=== PATIENT | female | born 1945 | race Caucasian/White ===

== ENCOUNTER 2019-11-06 16:28 | Emergency (ER) | payer MEDICARE ==
[~2019-11-06] VITALS: Ht 175.3 cm; Wt 85.9 kg
[~2019-11-06 16:28] MED LIST: ACAR100T2; AMLO1CAP54; BACL10TA PO; GLIM4TAB4; METF-316
[2019-11-06 16:45] VITALS: BP 189/80
[2019-11-06] MEDS ORDERED: BACL20TA PO (17:22)
[2019-11-06] MEDS ORDERED: GLIM4TAB4 PO (17:22)
[2019-11-06] MEDS ORDERED: METF-438 PO (17:22)
== END 2019-11-06 17:36 | disposition home or self-care (01) ==
LOC: ER 16:29
DX: E11.9 Type 2 diabetes mellitus without complications (principal); Z76.0 Encounter for issue of repeat prescription; J45.909 Unspecified asthma, uncomplicated; G89.29 Other chronic pain; M19.90 Unspecified osteoarthritis, unspecified site; Z98.890 Other specified postprocedural states
CPT/HCPCS: 99283

== ENCOUNTER 2019-12-09 11:46 | Emergency (ER) | payer MEDICARE, OTHER ==
[~2019-12-09] VITALS: Ht 175.3 cm; Wt 81.8 kg
[~2019-12-09 11:46] MED LIST changes: +BACL20TA PO; -GLIM4TAB4; +GLIM4TAB7; +METF-438 PO
[2019-12-09 11:56] VITALS: BP 187/77
[2019-12-09] MEDS ORDERED: METF500T PO (12:42)
[2019-12-09] MEDS ORDERED: BACL20TA PO (12:43)
== END 2019-12-09 13:35 | disposition home or self-care (01) ==
LOC: ER 11:46
DX: G89.29 Other chronic pain (principal); M79.606 Pain in leg, unspecified; J45.909 Unspecified asthma, uncomplicated; E11.9 Type 2 diabetes mellitus without complications; Z76.0 Encounter for issue of repeat prescription; Z87.891 Personal history of nicotine dependence; Z98.890 Other specified postprocedural states; Z79.899 Other long term (current) drug therapy
CPT/HCPCS: 99284